=== PATIENT | female | born 1980 | race Caucasian/White ===

== ENCOUNTER 2016-07-02 19:59 | Emergency (ER) | payer MEDICARE | END 2016-07-02 20:06 | disposition home or self-care (01) | LOC: ER 19:59 | DX: Z53.21 Procedure and treatment not carried out due to patient leaving prior to being seen by health care provider (principal) ==

== ENCOUNTER 2016-07-21 17:42 | Emergency (ER) | payer MEDICARE | END 2016-07-21 21:52 | disposition home or self-care (01) | LOC: ER 17:42 | DX: S20.211A Contusion of right front wall of thorax, initial encounter (principal); S30.1XXA Contusion of abdominal wall, initial encounter; S50.811A Abrasion of right forearm, initial encounter; I10 Essential (primary) hypertension; D64.9 Anemia, unspecified; Z79.82 Long term (current) use of aspirin; Z79.899 Other long term (current) drug therapy; Z88.5 Allergy status to narcotic agent; Z90.49 Acquired absence of other specified parts of digestive tract; V49.40XA Driver injured in collision with unspecified motor vehicles in traffic accident, initial encounter | CPT/HCPCS: 36415; Q9967 ==